=== PATIENT | female | born 1985 | race Caucasian/White ===

== ENCOUNTER 2022-04-03 16:08 | Emergency (ER) | payer OTHER ==
--- NOTE | 2022-04-03 17:31 | NUR ---
PATIENT LEFT WITHOUT BEING SEEN BY DR. DR FERNANDO. NO FURTHER CARE PROVIDED FOR PATIENT.
== END 2022-04-03 17:31 | disposition left against medical advice (07) ==
LOC: MED 16:08
DX: M25.579 Pain in unspecified ankle and joints of unspecified foot (principal); Z53.21 Procedure and treatment not carried out due to patient leaving prior to being seen by health care provider